=== PATIENT | female | born 1960 ===

== ENCOUNTER 2023-12-13 08:26 | Outpatient (CLI) | payer OTHER | END 2023-12-13 08:30 | disposition home or self-care (01) | LOC: SONOGRAMA 08:26 | PROVIDERS: ATTEND Obstetrics & Gynecology | DX: N84.0 Polyp of corpus uteri (principal) ==

== ENCOUNTER 2024-02-16 08:16 | Outpatient (CLI) | payer OTHER | END 2024-02-16 08:22 | disposition home or self-care (01) | LOC: TOM 08:16 | PROVIDERS: ATTEND Internal Medicine Gastroenterology | DX: Z12.11 Encounter for screening for malignant neoplasm of colon (principal); I10 Essential (primary) hypertension ==

== ENCOUNTER 2024-11-05 09:50 | Outpatient (CLI) | payer OTHER | END 2024-11-05 10:06 | disposition home or self-care (01) | LOC: MRI 09:50 | PROVIDERS: ATTEND Obstetrics & Gynecology Gynecologic Oncology | DX: D25.9 Leiomyoma of uterus, unspecified (principal) | CPT/HCPCS: 72197; Q9965 ==